=== PATIENT | female | born 1980 | race Caucasian/White ===

== ENCOUNTER 2020-02-26 19:34 | Emergency (ER) | payer SELFPAY ==
[~2020-02-26] VITALS: Ht 149.9 cm; Wt 60.0 kg
[2020-02-26] MEDS ORDERED: KETOROLAC 30 MG/1 ML ONE (20:07)
--- NOTE | 2020-02-26 20:17 | NUR ---
Patient assessed by midlevel provider. Patient answers questions clearly and concisely. RN to bedside at completion of assessment, received verbal orders to be placed by provider. RN returned and provided warm blanket, ice pack to affected ankle and then administered analgesic/antiinflammatory medications per provider order. At completion, cryptologic technician to bedside, awaiting radiology read.
[2020-02-26] MEDS ORDERED: KETOROLAC 30 MG/1 ML IM ONE (20:30)
--- NOTE | 2020-02-26 20:46 | NUR ---
Provider to bedside, informed patient of plan of care that provider recommends posterior splint, antiinflammatory medications and follow up with orthepedic provider. Patient verbalied understanding and agreement. Primary RN to emergency department stage technician to be able to provide splint.
--- NOTE | 2020-02-26 20:49 | NUR ---
Gave report to Basilio, all questions and plan of care reviewed.
[2020-02-26 21:14] VITALS: BP 124/76
== END 2020-02-26 21:22 | disposition home or self-care (01) ==
LOC: ED 21:19
DX: S82.64XA Nondisplaced fracture of lateral malleolus of right fibula, initial encounter for closed fracture (principal); S82.431A Displaced oblique fracture of shaft of right fibula, initial encounter for closed fracture; W18.30XA Fall on same level, unspecified, initial encounter; Y92.830 Public park as the place of occurrence of the external cause; Y93.89 Activity, other specified; Y99.8 Other external cause status
CPT/HCPCS: 29505; 73590; 73610; 96372; 99284; J1885